=== PATIENT | female | born 1955 | race Caucasian/White ===

== ENCOUNTER 2017-03-28 14:33 | Emergency (ER) | payer OTHER ==
[~2017-03-28] VITALS: Ht 165.1 cm; Wt 60.8 kg
[2017-03-28 15:23] VITALS: BP 123/73
== END 2017-03-28 15:23 | disposition home or self-care (01) ==
LOC: ED 14:33
DX: S66.911A Strain of unspecified muscle, fascia and tendon at wrist and hand level, right hand, initial encounter (principal); W19.XXXA Unspecified fall, initial encounter; Y93.89 Activity, other specified; Y92.89 Other specified places as the place of occurrence of the external cause; Y99.8 Other external cause status; I48.91 Unspecified atrial fibrillation; Z86.73 Personal history of transient ischemic attack (TIA), and cerebral infarction without residual deficits; Z85.828 Personal history of other malignant neoplasm of skin
CPT/HCPCS: A4570; Q0092

== ENCOUNTER 2017-08-29 08:51 | Emergency (ER) | payer OTHER ==
[~2017-08-29] VITALS: Ht 165.1 cm; Wt 60.8 kg
[2017-08-29 10:25] VITALS: BP 135/70
== END 2017-08-29 10:25 | disposition home or self-care (01) ==
LOC: ED 08:51
DX: L02.11 Cutaneous abscess of neck (principal)

== ENCOUNTER 2018-03-23 18:37 | Emergency (ER) | payer OTHER ==
[~2018-03-23] VITALS: Ht 165.1 cm; Wt 64.9 kg
[2018-03-23 18:56] VITALS: Ht 165.1 cm; Wt 64.9 kg
[2018-03-23 19:53] LABS: BASOPHIL % 0.5 % (0-2); PLATELET COUNT 271 x10^3mcL (130-400); RED CELL DISTRIBUTION WIDTH 12.8 % (11.5-14.5)
[2018-03-23 20:06] LABS: CALCIUM 8.6 mg/dL (8.5-10.1); CARBON DIOXIDE 25.8 mmol/L (21-32); CHLORIDE SERUM 107 mmol/L (98-107); CREATININE SERUM 0.6 mg/dL (0.6-1.0); GFR1 > 60 mL/min; GLUCOSE SERUM 89 mg/dL (74-106); POTASSIUM SERUM 3.9 mmol/L (3.5-5.1); SODIUM SERUM 143 mmol/L (136-145)
[2018-03-23 20:11] LABS: ALBUMIN 3.9 g/dL (3.4-5.0); ALKALINE PHOSPHATASE 89 U/L (46-116); AST/SGOT 13 U/L (15-37); BILIRUBIN TOTAL 0.3 mg/dL (0.20-1.00); TOTAL PROTEIN, SERUM 6.9 g/dL (6.4-8.2)
[2018-03-23 20:58] LABS: ALT/SGPT 19 U/L (14-59)
[2018-03-23 21:41] LABS: AMPHETAMINE QUAL UR NONE DETECTED (NEG <=1000)
[2018-03-23 23:14] VITALS: BP 118/84
== END 2018-03-23 23:14 | disposition home or self-care (01) ==
LOC: ED 18:37
PROVIDERS: Emergency Medicine
DX: J98.01 Acute bronchospasm (principal); I49.9 Cardiac arrhythmia, unspecified; I48.91 Unspecified atrial fibrillation; Z86.73 Personal history of transient ischemic attack (TIA), and cerebral infarction without residual deficits; Z85.828 Personal history of other malignant neoplasm of skin
CPT/HCPCS: 83880; J7030; J7613; Q0092

== ENCOUNTER 2018-12-05 10:14 | Emergency (ER) | payer OTHER ==
[~2018-12-05] VITALS: Ht 165.1 cm; Wt 66.7 kg
[2018-12-05 10:18] VITALS: BP 126/76; Ht 165.1 cm; Wt 66.7 kg
== END 2018-12-05 11:53 | disposition home or self-care (01) ==
LOC: ED 10:14
DX: S63.601A Unspecified sprain of right thumb, initial encounter (principal); I48.91 Unspecified atrial fibrillation; Z86.79 Personal history of other diseases of the circulatory system; Z86.73 Personal history of transient ischemic attack (TIA), and cerebral infarction without residual deficits; W18.39XA Other fall on same level, initial encounter; Y93.02 Activity, running; Y92.89 Other specified places as the place of occurrence of the external cause; Y99.8 Other external cause status

== ENCOUNTER 2019-05-15 16:09 | Emergency (ER) | payer OTHER ==
[~2019-05-15] VITALS: Ht 165.1 cm; Wt 64.0 kg
[2019-05-15 18:05] VITALS: Ht 165.1 cm; Wt 64.0 kg
[2019-05-15 19:56] LABS: CALCIUM 9.8 mg/dL (8.5-10.1); CARBON DIOXIDE 29.8 mmol/L (21-32); CHLORIDE SERUM 104 mmol/L (98-107); CREATININE SERUM 0.6 mg/dL (0.6-1.0); GFR1 > 60 mL/min; GLUCOSE SERUM 108 mg/dL (74-106); SODIUM SERUM 142 mmol/L (136-145)
[2019-05-15 19:58] LABS: BASOPHIL % 0.5 % (0-2); PLATELET COUNT 319 x10^3mcL (130-400)
[2019-05-15 19:59] LABS: RED CELL DISTRIBUTION WIDTH 14.6 % (11.5-14.5)
[2019-05-15 20:01] LABS: ALBUMIN 3.9 g/dL (3.4-5.0); ALKALINE PHOSPHATASE 81 U/L (46-116); ALT/SGPT 18 U/L (14-59); AST/SGOT 10 U/L (15-37); BILIRUBIN TOTAL 0.3 mg/dL (0.20-1.00); LIPASE 89 IU/L (73-393); TOTAL PROTEIN, SERUM 7.4 g/dL (6.4-8.2)
[2019-05-15 20:19] LABS: microscopic required? YES; urine erythrocyte NEGATIVE (NEGATIVE)
[2019-05-15 22:43] VITALS: BP 129/40
== END 2019-05-15 22:43 | disposition home or self-care (01) ==
LOC: ED 16:09
PROVIDERS: Emergency Medicine
DX: N39.0 Urinary tract infection, site not specified (principal); I49.9 Cardiac arrhythmia, unspecified; Z86.73 Personal history of transient ischemic attack (TIA), and cerebral infarction without residual deficits; Z85.828 Personal history of other malignant neoplasm of skin
CPT/HCPCS: 36415; J1885; Q0092

== ENCOUNTER 2019-09-14 17:55 | Emergency (ER) | payer OTHER ==
[~2019-09-14] VITALS: Ht 170.2 cm; Wt 64.0 kg
[2019-09-14 18:10] VITALS: BP 104/48; Ht 170.2 cm; Wt 64.0 kg
== END 2019-09-14 21:20 | disposition left against medical advice (07) ==
LOC: ED 17:55
DX: Z53.21 Procedure and treatment not carried out due to patient leaving prior to being seen by health care provider (principal)

== ENCOUNTER 2019-09-16 09:25 | Emergency (ER) | payer OTHER ==
[~2019-09-16] VITALS: Ht 165.1 cm; Wt 64.0 kg
[2019-09-16 09:28] VITALS: Ht 165.1 cm; Wt 64.0 kg
[2019-09-16 11:24] VITALS: BP 118/65
== END 2019-09-16 11:24 | disposition home or self-care (01) ==
LOC: ED 09:25
DX: S29.9XXA Unspecified injury of thorax, initial encounter (principal); I48.91 Unspecified atrial fibrillation; Z85.828 Personal history of other malignant neoplasm of skin; Z86.73 Personal history of transient ischemic attack (TIA), and cerebral infarction without residual deficits; W22.8XXA Striking against or struck by other objects, initial encounter; Y93.89 Activity, other specified; Y92.89 Other specified places as the place of occurrence of the external cause; Y99.8 Other external cause status

== ENCOUNTER 2020-06-05 19:58 | Emergency (ER) | payer OTHER ==
[~2020-06-05] VITALS: Ht 165.1 cm; Wt 64.4 kg
[2020-06-05 20:02] VITALS: Ht 165.1 cm; Wt 64.4 kg
[2020-06-05 20:42] VITALS: BP 170/74
== END 2020-06-05 20:42 | disposition home or self-care (01) ==
LOC: ED 19:58
DX: K08.89 Other specified disorders of teeth and supporting structures (principal); I48.91 Unspecified atrial fibrillation; Z86.73 Personal history of transient ischemic attack (TIA), and cerebral infarction without residual deficits; Z85.828 Personal history of other malignant neoplasm of skin

== ENCOUNTER 2020-09-16 17:46 | Emergency (ER) | payer OTHER, SELFPAY ==
[~2020-09-16] VITALS: Ht 165.1 cm; Wt 63.5 kg
[2020-09-16 17:47] VITALS: Ht 165.1 cm; Wt 63.5 kg
[2020-09-16 18:48] VITALS: BP 118/76
== END 2020-09-16 18:48 | disposition home or self-care (01) ==
LOC: ED 17:46
DX: B34.9 Viral infection, unspecified (principal); I46.9 Cardiac arrest, cause unspecified; Z20.828 Contact with and (suspected) exposure to other viral communicable diseases; Z86.73 Personal history of transient ischemic attack (TIA), and cerebral infarction without residual deficits; Z85.828 Personal history of other malignant neoplasm of skin
CPT/HCPCS: U0003